=== PATIENT | female | born 1965 | race Caucasian/White ===

== ENCOUNTER 2019-12-30 17:13 | Emergency (ER) | payer BC ==
[2019-12-30 17:19] VITALS: BP 124/65
--- NOTE | 2019-12-30 18:05 | ER Document Report ---
Doctor's Note Notes: 12/30/19 18:03 I was told by the front end specialist that the patient had left 3 minutes prior to me calling her to triage her. I then called the patient on her phone and she said that she did not want to stay because other patients were called prior to her. Patient was waiting for Pod 5/COVID area, based on her complaints. I asked if the patient would like to return so I can triage her and she said that she did not want to come back. I did not get a chance to evaluate the patient.
== END 2019-12-30 18:44 | disposition left against medical advice (07) ==
LOC: ER 17:13
DX: Z53.21 Procedure and treatment not carried out due to patient leaving prior to being seen by health care provider (principal)